=== PATIENT | female | born 1955 | race Caucasian/White ===

== ENCOUNTER 2017-04-17 11:36 | Outpatient (CLI) | payer BC ==
[~2017-04-17 11:36] MED LIST: GADOBUTROL 7.5 MMOL/7.5 ML VIAL ONE
[2017-04-17 12:47] LABS: CREATININE 0.5 mg/dL (0.4-1.0)
[2017-04-17] MEDS ORDERED: GADOBUTROL 7.5 MMOL/7.5 ML VIAL IVP ONE (13:23)
--- NOTE | 2017-04-17 17:27 | MRI Report ---
EXAM: MRI BRAIN AND ORBITS WITHOUT AND WITH CONTRAST EXAM DATE: 04/17/2017 01:48 PM. CLINICAL HISTORY: 4TH NERVE PALSY, UNSPECIFIED LATERALITY. COMPARISON: None. TECHNIQUE: Multiplanar, multisequence T1-weighted and fluid-sensitive MR sequences of the brain and o rbits were performed. Sequences optimized for orbital evaluation. Other: None. Without and with IV Co ntrast: Yes. 6 mL Gadavist FINDINGS: Brain Volume: Normal for age. Parenchyma/Dura: No masses, infarcts, or hemorrhage. Extensive scattered T2/FLAIR hyperintense perive ntricular, subcortical, deep white matter lesions within cerebral hemispheres bilaterally. No parench ymal microhemorrhages. No abnormal intracranial enhancement. Orbits: The optic globes bilaterally are unremarkable. The visualized optic nerves bilaterally are un remarkable. The remaining orbital structures including extraocular muscles bilaterally are unremarkab le. No associated abnormal enhancement. Ventricles/Cisterns: Normal. No hydrocephalus. Sinuses: Normal. No sinusitis evident. Bones: Normal. Other: None. IMPRESSION: 1. The optic globes bilaterally are unremarkable. The visualized optic nerves bilaterally are unremar kable. The remaining orbital structures including extraocular muscles bilaterally are unremarkable. N o associated abnormal enhancement. 2. Extensive scattered T2/FLAIR hyperintense periventricular, subcortical, deep white matter lesions within cerebral hemispheres bilaterally. While nonspecific, this likely represents sequela of chroni c microangiopathy. 3. No evidence of acute or subacute infarct, intracranial hemorrhage, mass, midline shift, or hydroce phalus. No abnormal intracranial enhancement. [facility] Referring Provider Line: [phone] SITE ID: [id number]
== END 2017-04-17 11:37 | disposition home or self-care (01) ==
LOC: DI 11:36
PROVIDERS: ATTEND Psychiatry & Neurology Neurology
DX: H53.2 Diplopia (principal); H49.11 Fourth [trochlear] nerve palsy, right eye
CPT/HCPCS: 36415; 70543; 82565; A9585

== ENCOUNTER 2018-09-03 13:14 | Outpatient (CLI) | payer MEDICARE, OTHER | END 2018-09-03 13:15 | disposition home or self-care (01) | LOC: DI 13:14 | DX: Z12.31 Encounter for screening mammogram for malignant neoplasm of breast (principal) | CPT/HCPCS: 77063; 77067 ==

== ENCOUNTER 2020-05-24 15:50 | Outpatient (CLI) | payer MEDICARE, OTHER ==
[2020-05-24] MEDS ORDERED: GADOBUTROL 7.5 MMOL/7.5 ML VIAL ONE (16:12)
--- NOTE | 2020-05-24 17:10 | MRI Report ---
PROCEDURE: Brain W/WO INDICATIONS: Memory loss CONTRAST: IV CONTRAST: Gadavist ml: 6.5 TECHNIQUE: Noncontrast axial T1 spin echo, axial T2 fast spin echo, sagittal and axial FLAIR, coronal T2 fast sp in echo, axial gradient echo, axial diffusion and ADC through the brain. After the administration of contrast, axial and coronal T1 spin echo with fat saturation through the brain. COMPARISON: None. FINDINGS: Image quality: Excellent. CSF spaces: Basal cisterns are patent. No extra-axial fluid collections. Ventricles are normal in size and shape. Brain: No midline shift. No intracranial bleeds or masses. No abnormal intracranial enhancement. T here is advanced global cerebral volume loss with no definite regional or lobar predilection to sugge st a specific neurodegenerative diagnosis. Advanced chronic microvascular ischemic changes are also p resent. The brainstem appears normal. Diffusion-weighted images demonstrate no acute ischemic insul ts. No chronic ischemic insults. Normal intravascular flow voids are present. Skull and face: Calvarial marrow is normal in signal. Orbits appear normal. Sinuses: Sinuses and mastoids appear clear. IMPRESSION: Diffuse global cerebral volume loss with with advanced at least moderate chronic microvascular ischem ic changes. Findings may represent vascular dementia although other neuro degenerative diagnoses pilar ot be excluded despite the lack of definite regional or lobar predilection to the volume loss. Reviewed by: Davonte Smith MD on 05/24/2020 5:08 PM PDT Approved by: Davonte Smith MD on 05/24/2020 5:08 PM PDT Station ID: [id number]
[2020-05-24] MEDS ORDERED: GADOBUTROL 7.5 MMOL/7.5 ML VIAL IVP ONE (17:46)
== END 2020-05-24 15:51 | disposition home or self-care (01) ==
LOC: DI 15:50
PROVIDERS: ATTEND Psychiatry & Neurology Neurology
DX: G31.89 Other specified degenerative diseases of nervous system (principal); I67.82 Cerebral ischemia
CPT/HCPCS: 70553; A9585

== ENCOUNTER 2022-12-14 11:50 | Emergency (ER) | payer MEDICARE, OTHER ==
[2022-12-14 12:33] LABS: BASOPHILS # (AUTO) 0.1 10^3/uL (0.0-0.1); BASOPHILS % (AUTO) 1.1 %; EOSINOPHILS # (AUTO) 0.1 10^3/uL (0.0-0.7); EOSINOPHILS % (AUTO) 1.4 %; HCT - HEMATOCRIT 42.3 % (37.0-47.0); HGB - HEMOGLOBIN 14.1 g/dL (12.0-16.0); LYMPHOCYTES # (AUTO) 0.9 10^3/uL (1.5-3.5); LYMPHOCYTES % (AUTO) 16.3 %; MEAN CORPUSCULAR HEMOGLOBIN 30.1 pg (27.0-31.0); MEAN CORPUSCULAR HGB CONC 33.3 g/dL (32.0-36.0); MEAN CORPUSCULAR VOLUME 90.4 fL (81.0-99.0); MEAN PLATELET VOLUME 10.3 fL (7.9-10.8); MONOCYTES # (AUTO) 0.4 10^3/uL (0.0-1.0); MONOCYTES % (AUTO) 6.5 %; NEUTROPHILS # (AUTO) 4.3 10^3/uL (1.5-6.6); NEUTROPHILS % (AUTO) 74.5 %; PLT - PLATELET COUNT 206 10^3/uL (130-450); RED BLOOD COUNT 4.68 10^6/uL (4.20-5.40); RED CELL DISTRIBUTION WIDTH 12.4 % (12.0-15.0); WHITE BLOOD COUNT 5.7 x10^3/uL (4.8-10.8)
[2022-12-14 12:49] LABS: ALBUMIN 4.4 g/dL (3.2-5.5); ALBUMIN/GLOBULIN RATIO 1.9 (1.0-2.2); CALCIUM 9.4 mg/dL (8.5-10.3); CREATININE 0.5 mg/dL (0.4-1.0); POTASSIUM 3.9 mmol/L (3.5-5.0); TOTAL PROTEIN 6.7 g/dL (6.7-8.2)
--- NOTE | 2022-12-14 13:51 | ED Physician Documentation ---
PD HPI ABD PAIN - Stated complaint Stated Complaint: BLOATING,DISCOMFORT - Chief complaint Chief Complaint: Abd Pain - History obtained from History obtained from: Patient, Family - Additional information Additional information: 67-year-old woman presents via by private vehicle accompanied by her . Last 3 days she has had stomach upset and bloating as well as dark and tarry stools. She did have some upper abdominal pain a few months ago that they were treating with either Pepcid or Prilosec, but she is no longer taking that. She is never had an endoscopy. She does take a baby aspirin daily. No NSAID use. Only moderate alcohol use. History is limited because patient has dementia and much of it is from the . 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 HEENT: Tonsil/Adenoidectomy - Present Medications Home Medications: Ambulatory Orders Medication Instructions Recorded Confirmed Enalapril [Vasotec] 20 mg PO DAILY 01/17/13 01/17/13 Fluticasone [Flonase] 1 sprays JOSR DAILY 01/17/13 01/17/13 raNITIdine HCL [Ranitidine HCl] 150 mg PO BID #28 tablet 01/17/13 Pantoprazole [Protonix] 1 tab PO BID #60 tab 12/14/22 - Allergies Allergies/Adverse Reactions: Allergies Allergy/AdvReac Type Severity Reaction Status Date / Time latex Allergy Respiratory Verified 12/14/22 12:07 albuterol AdvReac Mild Anxiety Verified 12/14/22 12:07 epinephrine AdvReac Mild Anxiety Verified 12/14/22 12:07 - Social History Does the pt smoke?: Yes Smoking Status: Current every day smoker Does the pt drink ETOH?: Yes Does the pt have substance abuse?: No - POLST POLST Status: Full Code PD ED PE NORMAL - Vitals Vital signs reviewed: Yes - General General: No acute distress - Cardiac Cardiac: RRR, No murmur - Respiratory Respiratory: No respiratory distress, Clear bilaterally - Abdomen Abdomen: Normal bowel sounds, Soft, Non tender - Rectal Rectal: Other (There is a stool sample in a paper towel at the bedside that she says is her and is quite dark and sent for guaiac.) - Neuro Neuro: Other (Slow stuttering historian, much of the history is from the .) Eye Opening: Spontaneous Motor: Obeys Commands Verbal: Confused GCS Score: 14 - Psych Psych: Normal mood, Normal affect Results - Vitals Vitals: Vital Signs - 24 hr 12/14/22 12:01 Temperature 36.3 C L Heart Rate 56 L Respiratory 16 Rate Blood Pressure 126/58 L O2 Saturation 100 Oxygen O2 Source Room air - Labs Labs: Microbiology 12/14/22 13:48 Occult Blood - Final Stool Laboratory Tests 12/14/22 12/14/22 12:29 12:29 WBC 5.7 RBC 4.68 Hgb 14.1 Hct 42.3 MCV 90.4 MCH 30.1 MCHC 33.3 RDW 12.4 Plt Count 206 MPV 10.3 Neut # (Auto) 4.3 Lymph # (Auto) 0.9 L [place] # (Auto) 0.4 Eos # (Auto) 0.1 Baso # (Auto) 0.1 Absolute Nucleated RBC 0.00 Nucleated RBC % 0.0 Sodium 141 Potassium 3.9 Chloride 103 Carbon Dioxide 28 Anion Gap 10.0 BUN 18 Creatinine 0.5 Estimated GFR (MDRD) 122 Glucose 94 Calcium 9.4 Total Bilirubin 1.0 AST 21 ALT 18 Alkaline Phosphatase 58 Total Protein 6.7 Albumin 4.4 Globulin 2.3 Albumin/Globulin Ratio 1.9 Lipase 50 PD Medical Decision Making - ED course ED course: 67-year-old woman presents with abdominal cramping and bloating and dark stools. Work-up here demonstrates a normal CBC with hemoglobin of 14.1. Normal CMP and she is guaiac positive suggesting a mild upper GI bleed. Given the above I think she can be safely discharged for outpatient follow-up. We will start her on high-dose PPI and recommend repeat labs next week or through her primary and consideration for upper endoscopy. Departure - Departure Disposition: 01 Home, Self Care Clinical Impression: Upper GI bleed Condition: Good Record reviewed to determine appropriate education?: Yes Instructions: ED Bleed UGI Stable Prescriptions: Pantoprazole [Protonix] 1 tab PO BID #60 tab Comments: You were seen today for an apparent upper GI bleed with guaiac positivity and dark stools but your hemoglobin was reassuring at 14.1 with normal liver enzymes. You should stop your baby aspirin. Follow-up with your doctor early next week for consideration for repeat labs and consideration for referral for upper endoscopy. Return if worse, or if you feel weak, dizzy, short of breath.
[2022-12-14] MEDS ORDERED: PANTOPRAZOLE 40 MG TABLET PO STA (14:17)
[2022-12-14 14:27] VITALS: BP 158/97
== END 2022-12-14 14:30 | disposition home or self-care (01) ==
LOC: ED 11:50
DX: K92.2 Gastrointestinal hemorrhage, unspecified (principal); I10 Essential (primary) hypertension; F17.200 Nicotine dependence, unspecified, uncomplicated
CPT/HCPCS: 36415; 80053; 82272; 83690; 85025; 99283; A9270

== ENCOUNTER 2023-12-03 10:00 | Outpatient (CLI) | payer MEDICARE, OTHER | END 2023-12-03 23:59 | disposition home or self-care (01) | LOC: PC 10:00 | PROVIDERS: ATTEND Nurse Practitioner Gerontology | DX: Z51.5 Encounter for palliative care (principal); F03.90 Unspecified dementia, unspecified severity, without behavioral disturbance, psychotic disturbance, mood disturbance, and anxiety; R47.01 Aphasia; Z65.8 Other specified problems related to psychosocial circumstances; Z71.89 Other specified counseling | CPT/HCPCS: 99306 ==

== ENCOUNTER 2024-01-10 10:30 | Outpatient (CLI) | payer MEDICARE, OTHER | END 2024-01-10 23:59 | disposition home or self-care (01) | LOC: PC 10:30 | PROVIDERS: ATTEND Nurse Practitioner Gerontology | DX: Z51.5 Encounter for palliative care (principal); F01.B4 Vascular dementia, moderate, with anxiety; I10 Essential (primary) hypertension; I25.10 Atherosclerotic heart disease of native coronary artery without angina pectoris; Z71.89 Other specified counseling; Z79.899 Other long term (current) drug therapy | CPT/HCPCS: 99350 ==

== ENCOUNTER 2024-01-26 20:36 | Outpatient (CLI) | payer MEDICARE, OTHER | END 2024-01-26 23:59 | disposition critical access hospital (66) | LOC: EMS 20:36 | DX: R10.84 Generalized abdominal pain (principal); R11.2 Nausea with vomiting, unspecified; R19.7 Diarrhea, unspecified | CPT/HCPCS: A0425; A0427 ==

== ENCOUNTER 2024-01-28 12:00 | Outpatient (CLI) | payer MEDICARE, OTHER | END 2024-01-28 23:59 | disposition home or self-care (01) | LOC: PC 12:00 | PROVIDERS: ATTEND Nurse Practitioner Gerontology | DX: Z51.5 Encounter for palliative care (principal); R11.2 Nausea with vomiting, unspecified; R10.9 Unspecified abdominal pain; R10.816 Epigastric abdominal tenderness; K21.9 Gastro-esophageal reflux disease without esophagitis; R47.01 Aphasia; G31.09 Other frontotemporal neurocognitive disorder; F02.C0 Dementia in other diseases classified elsewhere, severe, without behavioral disturbance, psychotic disturbance, mood disturbance, and anxiety; F01.C0 Vascular dementia, severe, without behavioral disturbance, psychotic disturbance, mood disturbance, and anxiety; I25.10 Atherosclerotic heart disease of native coronary artery without angina pectoris; Z95.5 Presence of coronary angioplasty implant and graft; Z79.899 Other long term (current) drug therapy; Z74.1 Need for assistance with personal care | CPT/HCPCS: 99349 ==

== ENCOUNTER 2024-01-28 13:31 | Emergency (ER) | payer MEDICARE, OTHER ==
--- NOTE | 2024-01-28 14:08 | ED Physician Documentation ---
PD HPI ABD PAIN - Stated complaint Stated Complaint: STOMACH PX, LOW TEMP - Chief complaint Chief Complaint: Abd Pain - History obtained from History obtained from: Patient, Family - History of Present Illness Timing - onset: Today Timing - duration: Hours Timing - details: Gradual onset, Still present, Waxing and waning Quality: Sharp, Pain Location: Epigastric Radiation: Lower back Improved by: Laying still, Vomiting Worsened by: Moving, Position, Palpation Associated symptoms: Nausea, Vomiting, Diarrhea Similar symptoms before: Diagnosis (vomiting and diarrhea) Recently seen: Emergency Dept - Additional information Additional information: Claudia Guevara is a 68-year-old female with advanced dementia who presented to our emergency department 2 nights ago after an acute onset of nausea vomiting and diarrhea before she ate dinner with family and friends. She was brought to the emergency department hydrated given Zofran and felt much improved a workup did not reveal a specific cause. She was well yesterday did not do much and today her took her out and she developed again nausea and vomiting. She indicates she does not feel well. This is the only history that she will give adequately. When asked about where she is having pain she initially points from her upper chest to her lower abdomen. Later in the visit she is unable to describe any pain. 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 : None HEENT: None Psych: None Musculoskeletal: None Derm: None - Past Surgical History 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 Cardiovascular: Coronary stent HEENT: Tonsil/Adenoidectomy - Present Medications Home Medications: Ambulatory Orders Medication Instructions Recorded Confirmed Fluticasone [Flonase] 1 sprays JOSR DAILY PRN 01/17/13 01/28/24 Aspirin [Aspirin EC] 81 mg PO DAILY 01/26/24 01/28/24 Atorvastatin Calcium 40 mg PO DAILY 01/26/24 01/28/24 Enalapril Maleate [Vasotec] 20 mg PO BID 01/26/24 01/28/24 Ezetimibe [Zetia] 10 mg PO DAILY 01/26/24 01/28/24 Metoprolol Succinate [Toprol Xl] 50 mg PO DAILY 01/26/24 01/28/24 Ondansetron Odt [Zofran] 4 mg TL Q6H PRN #10 tablet 01/27/24 - Allergies Allergies/Adverse Reactions: Allergies Allergy/AdvReac Type Severity Reaction Status Date / Time latex Allergy Respiratory Verified 01/28/24 13:49 albuterol AdvReac Mild Anxiety Verified 01/28/24 13:49 epinephrine AdvReac Mild Anxiety Verified 01/28/24 13:49 - Social History Does the pt smoke?: No Smoking Status: Never smoker Does the pt drink ETOH?: Yes Does the pt have substance abuse?: No - Immunizations Immunizations are current?: No - POLST Patient has POLST: No POLST Status: Full Code PD ED PE NORMAL - Vitals Vital signs reviewed: Yes (hypertensive with wide pulse pressure. 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, No motor deficit, No sensory deficit, Normal speech Eye Opening: Spontaneous Motor: Obeys Commands Verbal: Confused GCS Score: 14 - Psych Psych: Normal mood (patient is interactive affect is flat) Results - Vitals Vitals: Vital Signs - 24 hr 01/28/24 01/28/24 13:46 15:49 Temperature 36.2 C L Heart Rate 59 L 63 Respiratory 18 9 L Rate Blood Pressure 159/63 H 158/71 H O2 Saturation 100 100 Oxygen O2 Source Room air - Labs Labs: Laboratory Tests 01/28/24 01/28/24 01/28/24 14:20 14:20 14:20 WBC 6.8 RBC 4.21 Hgb 12.7 Hct 38.1 MCV 90.5 MCH 30.2 MCHC 33.3 RDW 12.2 Plt Count 167 MPV 10.9 H Neut # (Auto) 5.8 Lymph # (Auto) 0.6 L [place] # (Auto) 0.3 Eos # (Auto) 0.0 Baso # (Auto) 0.0 Absolute Nucleated RBC 0.00 Nucleated RBC % 0.0 Sodium 139 Potassium 3.5 Chloride 105 Carbon Dioxide 26 Anion Gap 8.0 BUN 19 Creatinine 0.6 Estimated GFR (MDRD) 99 Glucose 133 H Lactic Acid 1.8 Calcium 9.6 Total Bilirubin 0.7 AST 26 ALT 17 Alkaline Phosphatase 48 Total Protein 6.0 L Albumin 4.1 Globulin 1.9 L Albumin/Globulin Ratio 2.2 Lipase 63 Urine Color Urine Clarity Urine pH Ur Specific [place] Urine Protein Urine Glucose (UA) Urine Ketones Urine Occult Blood Urine Nitrite Urine Bilirubin Urine Urobilinogen Ur Leukocyte Esterase Ur Microscopic Review Urine Culture Comments 01/28/24 16:40 WBC RBC Hgb Hct MCV MCH MCHC RDW Plt Count MPV Neut # (Auto) Lymph # (Auto) [place] # (Auto) Eos # (Auto) Baso # (Auto) Absolute Nucleated RBC Nucleated RBC % Sodium Potassium Chloride Carbon Dioxide Anion Gap BUN Creatinine Estimated GFR (MDRD) Glucose Lactic Acid Calcium Total Bilirubin AST ALT Alkaline Phosphatase Total Protein Albumin Globulin Albumin/Globulin Ratio Lipase Urine Color YELLOW Urine Clarity CLEAR Urine pH 7.5 Ur Specific [place] 1.020 Urine Protein NEGATIVE Urine Glucose (UA) 100 H Urine Ketones 15 H Urine Occult Blood NEGATIVE Urine Nitrite NEGATIVE Urine Bilirubin NEGATIVE Urine Urobilinogen 0.2 (NORMAL) Ur Leukocyte Esterase NEGATIVE Ur Microscopic Review NOT INDICATED Urine Culture Comments NOT INDICATED - Rads (name of study) chest Relevant Findings:: Prelim report reviewed (Impression: No acute cardiopulmonary process.), EMP independent interpretation of test, See rad report CT head without Relevant Findings:: Prelim report reviewed (Impression: No acute intracranial pathology.), EMP independent interpretation of test, See rad report Procedures - IVC sono (time) 1400 Bedside IVC sono: IVC measures (cm) (1.02), IVC collapsed c insp (cm) (complete), Dehydration (est 1-2 liter deficit) PD Medical Decision Making - ED course Complexity details: reviewed results, re-evaluated patient, considered differential, d/w patient, d/w family Reviewed Lab Results: We reviewed a complete blood count showing a normal white blood cell count normal hemoglobin hematocrit and platelets her white blood cell count is decreased from a high of 13.7 two nights ago to normal at 6.8 today.The chemistries show normal electrolytes normal kidney and liver function lactate is normal at 1.8. These laboratory studies do not contribute to a specific diagnosis there is some improvement in the elevated white blood cell count indicating likely resolving illness of an acute nature. Departure - Departure Disposition: 01 Home, Self Care Clinical Impression: Gastroenteritis, Dehydration Condition: Stable Instructions: ED Gastroenteritis Vs Food Poison, ED Dehydration Follow-Up: PENNY SOLIS MD [Primary Care Provider] - Comments: Today looks like Claudia was dehydrated and we have provided 2 L of saline for hydration. We did not find evidence of a specific illness underlying this. Under this circumstance we termed this gastroenteritis and the usual causes of this are a viral etiology or bad food. 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 I anticipate that she is adequately hydrated currently. Forms: PCP List
--- NOTE | 2024-01-28 14:22 | XRAY Report ---
PROCEDURE: Chest 1V INDICATIONS: chest pain TECHNIQUE: One view of the chest was acquired. COMPARISON: 01/26/2024 FINDINGS: Surgical changes and devices: None. Lungs and pleura: No pleural effusions or pneumothorax. Lungs are clear. Mediastinum: Mediastinal contours appear normal. Heart size is normal. Bones and chest wall: No suspicious bony lesions. Overlying soft tissues appear unremarkable. IMPRESSION: No acute cardiopulmonary process. Reviewed by: Shlomo Tijerina MD on 01/28/2024 2:20 PM PDT Approved by: Shlomo Tijerina MD on 01/28/2024 2:20 PM PDT Station ID: [id number]
[2024-01-28 14:29] LABS: BASOPHILS % (AUTO) 0.6 %; HCT - HEMATOCRIT 38.1 % (37.0-47.0); HGB - HEMOGLOBIN 12.7 g/dL (12.0-16.0); LYMPHOCYTES # (AUTO) 0.6 10^3/uL (1.5-3.5); LYMPHOCYTES % (AUTO) 8.5 %; MEAN CORPUSCULAR HEMOGLOBIN 30.2 pg (27.0-31.0); MEAN CORPUSCULAR HGB CONC 33.3 g/dL (32.0-36.0); MEAN CORPUSCULAR VOLUME 90.5 fL (81.0-99.0); MEAN PLATELET VOLUME 10.9 fL (7.9-10.8); MONOCYTES # (AUTO) 0.3 10^3/uL (0.0-1.0); NEUTROPHILS # (AUTO) 5.8 10^3/uL (1.5-6.6); NEUTROPHILS % (AUTO) 85.6 %; PLT - PLATELET COUNT 167 10^3/uL (130-450); RED BLOOD COUNT 4.21 10^6/uL (4.20-5.40); RED CELL DISTRIBUTION WIDTH 12.2 % (12.0-15.0); WHITE BLOOD COUNT 6.8 x10^3/uL (4.8-10.8)
[2024-01-28] MEDS: SODIUM CHLORIDE 0.9% 1,000 ML IV STA ×2 (14:29→15:53)
[2024-01-28 14:47] LABS: ALBUMIN 4.1 g/dL (3.2-5.5); ALBUMIN/GLOBULIN RATIO 2.2 (1.0-2.2); BILIRUBIN,TOTAL 0.7 mg/dL (0.2-1.0); CALCIUM 9.6 mg/dL (8.5-10.3); CREATININE 0.6 mg/dL (0.6-1.3); POTASSIUM 3.5 mmol/L (3.5-4.5)
--- NOTE | 2024-01-28 15:56 | CT Report ---
PROCEDURE: Head WO INDICATIONS: altered LOC vomiting TECHNIQUE: Noncontrast 4.5 mm thick angled axial sections acquired from the foramen magnum to the vertex. For r adiation dose reduction, the following was used: automated exposure control, adjustment of mA and/or kV according to patient size. COMPARISON: MR 05/24/2020 FINDINGS: Image quality: Excellent. CSF spaces: Basal cisterns are patent. No extra-axial fluid collections. Ventricles are normal in size and shape. Brain: No midline shift. No intracranial masses or hemorrhage. Cao-white matter interface is norm al. Leukoaraiosis, commonly caused by chronic small vessel ischemic disease. Age-related volume loss. Skull and face: Calvarium and visualized facial bones are intact, without suspicious lesions. Sinuses: Visualized sinuses and mastoids are clear. IMPRESSION: No acute intracranial pathology. Reviewed by: Shlomo Tijerina MD on 01/28/2024 3:54 PM PDT Approved by: Shlomo Tijerina MD on 01/28/2024 3:54 PM PDT Station ID: [id number]
[2024-01-28 16:54] LABS: BILIRUBIN,URINE NEGATIVE (NEGATIVE); GLUCOSE, URINE (UA) 100 mg/dL (NEGATIVE); KETONES,URINE (UA) 15 mg/dL (NEGATIVE); LEUKOCYTE ESTERASE, URINE NEGATIVE (NEGATIVE); NITRITE,URINE NEGATIVE (NEGATIVE); OCCULT BLOOD,URINE NEGATIVE (NEGATIVE); PH,URINE 7.5 PH (5.0-7.5); PROTEIN,URINE NEGATIVE (NEGATIVE); UROBILINOGEN,URINE 0.2 (NORMAL) E.U./dL (NORMAL)
[2024-01-28 16:57] LABS: CLARITY,URINE CLEAR (CLEAR)
[2024-01-28 17:29] VITALS: BP 149/71; O2SAT 99
== END 2024-01-28 17:15 | disposition home or self-care (01) ==
LOC: ED 13:31
DX: K52.9 Noninfective gastroenteritis and colitis, unspecified (principal); E86.0 Dehydration; F03.90 Unspecified dementia, unspecified severity, without behavioral disturbance, psychotic disturbance, mood disturbance, and anxiety; I10 Essential (primary) hypertension; E78.00 Pure hypercholesterolemia, unspecified; Z79.82 Long term (current) use of aspirin; Z79.899 Other long term (current) drug therapy
CPT/HCPCS: 36415; 80053; 81001; 81003; 83605; 83690; 85025; 87040; 87086; 96360; 96361; 99284

== ENCOUNTER 2024-02-26 08:00 | Outpatient (CLI) | payer MEDICARE, OTHER | END 2024-02-26 23:59 | disposition home or self-care (01) | LOC: PC 08:00 | PROVIDERS: ATTEND Nurse Practitioner Gerontology | DX: Z51.5 Encounter for palliative care (principal); F03.90 Unspecified dementia, unspecified severity, without behavioral disturbance, psychotic disturbance, mood disturbance, and anxiety | CPT/HCPCS: 99426 ==

== ENCOUNTER 2024-03-10 08:00 | Outpatient (CLI) | payer MEDICARE, OTHER | END 2024-03-10 23:59 | disposition home or self-care (01) | LOC: PC 08:00 | PROVIDERS: ATTEND Nurse Practitioner Gerontology | DX: Z51.5 Encounter for palliative care (principal); K21.9 Gastro-esophageal reflux disease without esophagitis; F01.B4 Vascular dementia, moderate, with anxiety; I95.2 Hypotension due to drugs; T46.4X5A Adverse effect of angiotensin-converting-enzyme inhibitors, initial encounter; I25.10 Atherosclerotic heart disease of native coronary artery without angina pectoris; I10 Essential (primary) hypertension; E78.5 Hyperlipidemia, unspecified; G31.01 Pick's disease; Z66 Do not resuscitate; Z71.89 Other specified counseling | CPT/HCPCS: 99349 ==

== ENCOUNTER 2024-03-16 09:26 | Outpatient (CLI) | payer MEDICARE, OTHER ==
[2024-03-16 09:43] LABS: HCT - HEMATOCRIT 39.2 % (37.0-47.0); HGB - HEMOGLOBIN 12.7 g/dL (12.0-16.0); MEAN CORPUSCULAR HEMOGLOBIN 29.6 pg (27.0-31.0); MEAN CORPUSCULAR HGB CONC 32.4 g/dL (32.0-36.0); MEAN CORPUSCULAR VOLUME 91.4 fL (81.0-99.0); MEAN PLATELET VOLUME 10.3 fL (7.9-10.8); RED BLOOD COUNT 4.29 10^6/uL (4.20-5.40); WHITE BLOOD COUNT 4.7 x10^3/uL (4.8-10.8)
[2024-03-16 09:59] LABS: ALBUMIN 4.1 g/dL (3.2-5.5); ALBUMIN/GLOBULIN RATIO 1.9 (1.0-2.2); ALKALINE PHOSPHATASE 51 IU/L (42-121); ALT ALANINE AMINOTRANSFERASE 11 IU/L (10-60); AMYLASE 63 U/L (28-100); AST ASPARTATE AMINOTRANSFERASE 14 IU/L (10-42); BILIRUBIN,TOTAL 0.7 mg/dL (0.2-1.0); BUN - BLOOD UREA NITROGEN 21 mg/dL (6-20); CALCIUM 9.4 mg/dL (8.5-10.3); CARBON DIOXIDE - CO2 31 mmol/L (21-32); CHLORIDE 105 mmol/L (101-111); CHOL/HDL RATIO 1.8 (<4.4); CHOLESTEROL 129 mg/dL; CREATININE 0.6 mg/dL (0.6-1.3); GFR - MDRD 99 (>89); GLUCOSE 128 mg/dL (74-104); HDL CHOLESTEROL 73 mg/dL; LDL CHOLESTEROL,CALCULATED 42 mg/dL; LDL/HDL RATIO 0.6 (<4.4); LIPASE 45 U/L (11-82); SODIUM 139 mmol/L (135-145); TOTAL PROTEIN 6.3 g/dL (6.4-8.9); TRIGLYCERIDES 68 mg/dL; VLDL CHOLESTEROL 14 mg/dL
[2024-03-16 10:10] LABS: ESTIMATED AVERAGE GLUCOSE 100 mg/dL (70-100); HEMOGLOBIN A1c% 5.1 % (4.27-6.07)
[2024-03-16 10:14] LABS: THYROID STIMULATING HORMONE 0.85 uIU/mL (0.34-5.60)
== END 2024-03-16 09:27 | disposition home or self-care (01) ==
LOC: LAB 09:26
PROVIDERS: ATTEND Nurse Practitioner Gerontology
DX: E78.5 Hyperlipidemia, unspecified (principal); F01.B4 Vascular dementia, moderate, with anxiety; K52.9 Noninfective gastroenteritis and colitis, unspecified; D12.6 Benign neoplasm of colon, unspecified; R11.2 Nausea with vomiting, unspecified
CPT/HCPCS: 36415; 80053; 80061; 82150; 82306; 82607; 82746; 83036; 83690; 83721; 84443; 85027